=== PATIENT | female | born 1985 | race Caucasian/White ===

== ENCOUNTER 2022-12-29 18:25 | Outpatient (CLI) | payer OTHER, SELFPAY ==
[2022-12-29 18:43] VITALS: BP 112/74; PULSE 83; TEMP 36.8
[2022-12-29 18:48] VITALS: BMI 31.1
[2022-12-29 19:19] LABS: Color, Urine Yellow (Yellow); Glucose, Dipstick Normal (Normal); Ketone-Dipstick Negative (Negative); Leukocyte Esterase-Dipstick 25 /ul (Negative); Nitrite-Dipstick Negative (Negative); Occult Blood-Urine Negative /ul (Negative); Protein-Dipstick Negative (Negative); Specific Gravity, Urine 1.005 (1.002-1.030); Urine Bilirubin Dipstick Negative (Negative); Urine Clarity Clear (Clear); Urine Urobilinogen Normal (Normal)
--- NOTE | 2022-12-31 08:44 | OB.TRI.NOTE ---
HPI - General General Date of Admission: 12/29/22 Date of Service: 12/29/22 Chief Complaint: contractions HPI Narrative KELLY SOLIZ, is a 37 F who presents w/ cramping Maternal Data Information Final JOSELYN: 03/[birth year]/23 Gestational age: 27 PFSH PFSH Home Medications 12/29/22 [History Last Taken Unknown] Allergy/AdvReac Type Severity Reaction Status Date / Time No Known Allergies Allergy Verified 12/29/22 18:48 Social History Smoking Status: Never smoker NST FHR Rate Baby A Baseline: normal Variability:: Minimal and Moderate Accelerations:: 10 x 10 Decelerations:: None NST Reactive:: Appropriate for gestational age FHR Category:: Category I Uterine Activity:: irritability, no regular ctxds Assessment & Plan (1) 27 weeks gestation of : PLAN: High risk multigravida with advanced maternal age and threatened labor at 27 weeks gestation. No evidence of active labor. Some [place] contractions. Patient was discharged home with labor precautions and to return as needed or follow-up her next office appointment.
== END 2022-12-29 19:45 | disposition home or self-care (01) ==
LOC: WPOUT 18:34 → WP 18:35
PROVIDERS: Visit Provider Obstetrics & Gynecology
DX: O09.522 Supervision of elderly multigravida, second trimester (principal); Z3A.27 27 weeks gestation of pregnancy; O26.892 Other specified pregnancy related conditions, second trimester; R10.9 Unspecified abdominal pain
CPT/HCPCS: 59025; 59050; 81002; 87086; 87088

== ENCOUNTER 2023-03-14 17:45 | Outpatient (CLI) | payer OTHER, SELFPAY ==
[2023-03-14 18:01] VITALS: BP 113/79; PULSE 83
[2023-03-14 18:02] VITALS: PULSE 84; TEMP 37.2; O2SAT 98
[2023-03-14 18:08] VITALS: BMI 32.0
[2023-03-14 18:12] VITALS: BP 114/79; PULSE 83
[2023-03-14 18:22] VITALS: BP 110/66; PULSE 96
[2023-03-14 18:32] VITALS: BP 115/82; PULSE 99
--- NOTE | 2023-03-18 12:16 | OB.TRI.NOTE ---
HPI - General General Date of Admission: 03/14/23 Date of Service: 03/14/23 Chief Complaint: visual changes HPI Narrative KELLY SOLIZ, is a 37 F who presents c/o visual changes and concerned about preclampsia Maternal Data Information Final JOSELYN: 03/26/23 Gestational age: 38 2/7 [facility] Medical History (Updated 03/18/23 @ 12:[address] Goldie Vega MD) Advanced maternal age (AMA) in In vitro fertilization Home Medications 1 tab PO.IVFORM DAILY 12/29/22 [History Last Taken Unknown] Allergy/AdvReac Type Severity Reaction Status Date / Time No Known Allergies Allergy Verified 12/29/22 18:48 Social History Smoking Status: Never smoker NST FHR Rate Baby A Baseline: 130 Variability:: Moderate Accelerations:: 15 x 15 Decelerations:: None NST Reactive:: Yes FHR Category:: Category I Uterine Activity:: irregular ctxs Assessment & Plan (1) 38 weeks gestation of : PLAN: 38-week high risk multigravida with advanced maternal age and conceived by in vitro fertilization presents for visual changes. No evidence of preeclampsia. NST reactive. Discharged home with routine follow-up or return as needed. Patient was comfortable with plan
== END 2023-03-14 18:55 | disposition home or self-care (01) ==
LOC: WPOUT 17:53 → WP 17:54
PROVIDERS: Referring Provider Advanced Practice Midwife; Visit Provider Advanced Practice Midwife
DX: O99.891 Other specified diseases and conditions complicating pregnancy (principal); O09.523 Supervision of elderly multigravida, third trimester; Z3A.38 38 weeks gestation of pregnancy; O09.813 Supervision of pregnancy resulting from assisted reproductive technology, third trimester; H53.9 Unspecified visual disturbance
CPT/HCPCS: 59025; 59050

== ENCOUNTER 2023-03-19 07:20 | Inpatient (IN) | payer OTHER, SELFPAY ==
[2023-03-19] VITALS (52 sets, daily range): BP systolic 101–128; BP diastolic 59–91; PULSE 74–122; TEMP 36.1–36.8; O2SAT 92–100; BMI 31.9
[2023-03-19] MEDS: Lactated Ringers 1,000 ML 50 ML IV (07:55)
[2023-03-19] MEDS: 0.9% Normal Saline Single 100 ML IV.SOLN. INTRA-UTER (08:14)
[2023-03-19] MEDS: Oxytocin 15 Units/NS 250ml 15 UNITS/250 ML IV.SOLN 2 UNITS IV (08:20)
[2023-03-19 08:30] LABS: Absolute Lymphocyte Count 2.67 X10^3/uL (0.83-4.51); Absolute Neutrophil Count 5.5 X10^3/uL (2.0-7.7); Basophil# 0.04 X10^3/uL; Basophil% 0.4 % (0-1); Eosinophil# 0.22 X10^3/uL; Eosinophils% 2.4 % (0-5); Hematocrit 36.3 % (37-47); Hemoglobin 12.2 g/dL (12.0-15.0); Lymphocyte # 2.67 X10^3/ul (0.83-4.51); Lymphocyte % 28.6 % (19-41); Mean Corp Hgb Conc 33.6 g/dL (32-36); Mean Corpuscular Hgb 31.4 pg (27.0-32.0); Mean Corpuscular Volume 93.3 fL (81-99); Mean Platelet Vol. 9.1 fl (6.2-12.0); Monocyte# 0.81 X10^3/uL; Monocyte% 8.7 % (0-10); NRBC Flagged by Analyzer 0 % (0-5); Neutrophil # 5.53 X10^3/uL (2.7-7.7); Neutrophil % 59.2 % (47-70); Platelet Count 289 K/mm3 (150-450); RBC Distribution Width CV 13.9 % (11.6-14.6); RBC Distribution Width SD 47.1 fl (35.1-43.9); Red Blood Count 3.89 M/mm3 (4.2-5.4); White Blood Count 9.3 K/mm3 (4.4-11.0)
--- NOTE | 2023-03-19 09:31 | HP.PCM.OB_ITS ---
HPI - General General Date of Admission: 03/19/23 HPI Narrative KELLY SOLIZ, is a 37 F who presents at 39 weeks for induction of labor due to AMA and IVF. Maternal Data Information Final JOSELYN: 03/26/23 Gestational age: 39 weeks [facility] Medical History (Updated 03/19/23 @ 09:39 by Jeannette Mesa CNM) Advanced maternal age (AMA) in In vitro fertilization Home Medications 1 tab PO.IVFORM DAILY 12/29/22 [History Last Taken Unknown] Allergy/AdvReac Type Severity Reaction Status Date / Time No Known Allergies Allergy Verified 12/29/22 18:48 Surgical History History of surgery Social History Smoking Status: Never smoker History Elective abortions Hx Para 1 Spontaneous abortions Hx # Term Pregnancies Ectopic pregnancies Hx # Pregnancies Multiple births # of living children NST FHR Rate Baby A Baseline: 135 Variability:: Moderate Accelerations:: 15 x 15 Decelerations:: None FHR Category:: Category I Uterine Activity:: Irregular, mild ROS Constitutional Constitutional: Reports systems reviewed and no addt'l complaints, except as documented; Denies headache(s) Eyes Eyes: Denies acute decrease in peripheral vision, blurry vision or change in vision ENT HEENT: Reports systems reviewed and no addt'l complaints, except as documented Cardiovascular Cardiovascular: Denies chest pain or dizziness Respiratory/Chest Respiratory/Chest: Denies cough, dyspnea, dyspnea on exertion, shortness of breath at rest or shortness of breath with exertion Gastrointestinal Gastrointestinal: Denies abdominal pain, diarrhea, nausea or vomiting Genitourinary Genitourinary: Denies abdominal discomfort Musculoskeletal Musculoskeletal: Denies limited range of motion Integumentary Integumentary: Reports systems reviewed and no addt'l complaints, except as documented Neurologic Neurologic: Reports systems reviewed and no addt'l complaints, except as documented Psychiatric Psychiatric: Reports systems reviewed and no addt'l complaints, except as documented Endocrine Endocrinology: Reports systems reviewed and no addt'l complaints, except as documented Hematologic/Lymphatic Hematologic/Lymphatic: Reports systems reviewed and no addt'l complaints, except as documented Allergic/Immunologic Allergic/Immunologic: Reports systems reviewed and no addt'l complaints, except as documented Vital Signs Vital Signs Vital Signs: 03/19/23 07:43 03/19/23 07:43 Pulse Rate 100 Blood Pressure 114/84 H BP Systolic 114 BP Diastolic 84 Weight Weight: 186 lb Body Mass Index (BMI) 31.9 Physical Exam Const alert and oriented x3 General Appearance: cooperative Orientation / Consciousness: awake, oriented to person, oriented to place and oriented to time Exam Limitations: no limitations HEENT normocephalic Head and Scalp: normal to inspection, normocephalic and atraumatic Face and Sinus: normal facial exam Eyes General Eye: normal appearance of both eyes Neck full ROM Chest Chest: symmetrical chest wall rise Resp normal respiratory effort and normal air movement Auscultation: clear to auscultation bilaterally Cardio regular rate, regular rhythm, S1 normal heart sound, S2 normal heart sound, no murmurs, no rub, no gallops and no clicks GI normal to inspection, nondistended, normoactive bowel sounds and non-tender appearance of the vagina normal Bladder / Kidney Exam: no CVA tenderness Manual OB Exam: estimated gestational size appropriate, presentation cephalic, dilated 1cm, effaced 50%, station -3 and other Insertion of #20 molina balloon catheter through cervix with stylus, 30ml NS instilled into balloon. Patient tolerated well. Amniotic Fluid: no amniotic fluid noted Back/Spine normal ROM Extremity normal to inspection and full ROM Skin no rashes or lesions noted Neuro oriented x3, CN's II-XII intact bilaterally and moves all extremities Sensorium / Orientation: awake, alert and oriented to person Motor Exam: clonus absent Deep Tendon Reflexes: Rt Patellar (L4): 2+ and Lt Patellar (L4): 2+ Labs Labs Labs: Blood Type A NEGATIVE Antibody Screen NEGATIVE Hct 36.3 % (37-47) L Hgb 12.2 g/dL (12.0-15.0) Syphilis Total Ab Pending HIV negative HBsAG negative HepC negative RPR negative GBS negative A negative Rubella immune GC/CT negative Assessment & Plan (1) 39 weeks gestation of : (2) History of delivery: (3) resulting from in-vitro fertilization: (4) PCOS (polycystic ovarian syndrome): (5) History of miscarriage: (6) Rh negative state in antepartum period: (7) Encounter for induction of labor: PLAN: Plan 1) Admit to labor and delivery for induction of labor due to AMA and IVF 2) Routine labs 3) Continuous EFM 4) Molina balloon catheter for cervical ripening with pitocin 5) Epidural for pain management upon request 6) GBS negative 7) collaborative physician and notified of patient status.
[2023-03-19 09:48] LABS: Syphilis Antibodies Non-reactive
[2023-03-19] MEDS: Acetaminophen 500 MG Tablet PO ×2 (10:35→22:40)
[2023-03-19] MEDS: LACTATED RINGERS 500 ML 999 ML IV (14:51)
[2023-03-19] MEDS: fentaNYL-bupivacaine (epidural) 100 ML BAG EPIDURAL ×2 (15:32→21:09)
[2023-03-19] MEDS: Lactated Ringers 1,000 ML 200 ML IV ×2 (18:41→23:35)
[2023-03-19] MEDS: 0.9% Saline Lock 10 ML Syringe IV (22:23)
[2023-03-19] MEDS: Amnioinfusion- 0.9% NS 1,000 ML IV.SOLN. 1000 ML INTRA-UTER (23:58)
[2023-03-20] VITALS (50 sets, daily range): BP systolic 90–163; BP diastolic 54–94; PULSE 82–139; RESP 14–16; TEMP 36.2–37.2; O2SAT 90–100
[2023-03-20] MEDS: Oxytocin 15 Units/NS 250ml 15 UNITS/250 ML IV.SOLN 10 UNITS IV (01:31)
[2023-03-20] MEDS: Ondansetron 4 MG/2 ML Vial IV (02:03)
[2023-03-20] MEDS: Acetaminophen 500 MG Tablet PO (03:25)
--- NOTE | 2023-03-20 04:53 | EX.PCM.OBRPT ---
Maternal Data Information Final JOSELYN: 03/26/23 Gestational age: 39 1/7 Vaginal Delivery Maternal Presentation Maternal Presentation: Medically Indicated Induction (advanced maternal age) Type of Induction: Pitocin, Velásquez Bulb and Amniotomy Operative Information Date of Procedure: 03/20/23 Pre-Operative Diagnosis: maternal exhaustion, labor Post-Operative Diagnosis: same Surgery / Procedure Performed: Vacuum Assisted Vaginal Delivery (outlet) Type of Anesthesia: Epidural Drain: Velásquez to straight drain Estimated Blood Loss: 500 Time of Delivery: 04:35 Findings Description of Procedure: I arrived assessed the patient. She was pushing with moderate effort but cannot hold prolonged pushes because of her discomfort and exhaustion. She was frustrated. Patient pushed for half an hour without significant change. She had been labia approximately 2 cm many years with pushing for that half hour. Position was AVTAR. skull was on the pelvic floor. Station was +5. Epidural was adequate but she had significant back pain. Estimated weight was less than 4500 g and pelvis was clinically adequate to expect vaginal delivery. Velásquez catheter was in place. I discussed with the patient and her partner risk benefits and alternatives to trial of outlet assisted vacuum delivery and they desired to proceed. The vacuum was placed on the flexion point and I pulled with 1 contraction at 550 mmHg. I pulled to and there was a pop-off. Patient then delivered with maternal pushing efforts only on the next contraction. A vigorous male infant was delivered AVTAR over an intact perineum.. A loose nuchal cord ?1 was easily reduced. The remainder the was delivered with maternal pushing and gentle traction only in less than 15 seconds. The Pitocin infusion was initiated for active management of the third stage. The cord was clamped and cut pretty quickly because the infant had good tone and heart rate but immediately did have vigorous respiratory effort. The infant was attended to by the waiting nursing staff. The placenta was delivered spontaneously and intact. The cervix and vagina were intact. There is a first-degree vaginal laceration at approximately 12:00 that was repaired with 3-0 Vicryl Rapide suture. It was hemostatic. It was repaired because it was actively bleeding after delivery. Sponge and needle counts were correct. A vaginal sweep was completed by me. Presentation: AVTAR Amniotic Membrane Rupture Type: Artificial Amniotic Fluid Description: Clear Placental Delivery Description: Spontaneous Placenta Disposition: [facility] Specimen(s) Removed: cord blood Cord Vessel Description: 3 Vessels Cord Entanglement: Around neck x 1, loose Nuchal Cord Compression: Without compression Cord Gases: ABG and VBG A Gender: Male ([place]) (1 minute): 9 (5 minute): 9 Delayed Cord Clamping: No Post Vaginal Delivery Medications Given After Delivery: IV Pitocin and IM Pitocin Episiotomy Description: None Laceration: 1st degree Complication Complications: None
[2023-03-20] MEDS: Oxytocin 15 Units/NS 250ml 15 UNITS/250 ML IV.SOLN 83 UNITS IV (05:08)
[2023-03-20] MEDS: 0.9% Saline Lock 10 ML Syringe IV (05:08)
[2023-03-20] MEDS: Ibuprofen 600 MG Tablet PO ×3 (06:14→20:52)
[2023-03-20] MEDS: Acetaminophen 500 MG Tablet 1000 MG PO (10:57)
[2023-03-20] MEDS: Senna/Docusate Sodium 1 Tablet PO (20:52)
[2023-03-21 00:25] VITALS: BP 106/70; PULSE 88; RESP 16; TEMP 36.6
[2023-03-21 05:15] VITALS: BP 112/71; PULSE 91; RESP 16; TEMP 36.6
[2023-03-21] MEDS: Ibuprofen 600 MG Tablet PO ×2 (05:27→12:21)
[2023-03-21 05:28] LABS: Hematocrit 27.2 % (37-47); Hemoglobin 9.3 g/dL (12.0-15.0); Mean Corp Hgb Conc 34.2 g/dL (32-36); Mean Corpuscular Volume 93.5 fL (81-99); Mean Platelet Vol. 8.9 fl (6.2-12.0); Platelet Count 237 K/mm3 (150-450); RBC Distribution Width CV 14.2 % (11.6-14.6); RBC Distribution Width SD 47.3 fl (35.1-43.9); Red Blood Count 2.91 M/mm3 (4.2-5.4)
--- NOTE | 2023-03-21 06:40 | PN.OBGYN_ITS ---
Subjective Subjective Doing well per patient and nursing staff. Ambulating and taking PO without difficulty. Voiding and passing flatus. Pain controlled. , services for assistance. Denies headache, visual changes, chest pain, shortness of breath, leg pain or increased bleeding. Lochia normal. Objective Data Objective Data Vital Signs: Vital Signs Temp Pulse Resp BP Pulse Ox O2 Del Method 97.9 F 91 16 112/71 100 Room Air 03/21/23 05:15 03/21/23 05:15 03/21/23 05:15 03/21/23 05:15 03/20/23 12:00 03/21/23 05:15 Oxygen Delivery Method Room Air Weight: 186 lb Body Mass Index (BMI) 31.9 Intake & Output: Intake and Output for Last 24 Hours 03/19/23 03/20/23 03/21/23 23:59 23:59 23:59 Intake Total 2692.18 / 2692.18 1464.9 / 1464.9 Output Total 1600 / 1600 1800 / 1800 Balance 1092.18 / 1092.18 -335.1 / -335.1 Lab / Micro Data 03/21/23 05:20 Labs: Laboratory Results - last 24 hr 03/20/23 07:00: Screen NEGATIVE, Baby's Blood Type O POSITIVE, Baby's REJI NEGATIVE 03/21/23 05:20: WBC 22.0 H, RBC 2.91 L, Hgb 9.3 L, Hct 27.2 L, MCV 93.5, MCH 32.0, MCHC 34.2, RDW Std Deviation 47.3 H, RDW Coeff of Carlos 14.2, Plt Count 237, MPV 8.9 ROS Constitutional Constitutional: Reports systems reviewed and no addt'l complaints, except as documented; Denies headache(s) Eyes Eyes: Denies acute decrease in peripheral vision, blurry vision or change in vision ENT HEENT: Reports systems reviewed and no addt'l complaints, except as documented Cardiovascular Cardiovascular: Denies chest pain or dizziness Respiratory/Chest Respiratory/Chest: Denies cough, dyspnea, dyspnea on exertion, shortness of breath at rest or shortness of breath with exertion Gastrointestinal Gastrointestinal: Denies abdominal pain, diarrhea, nausea or vomiting Genitourinary Genitourinary: Denies abdominal discomfort Musculoskeletal Musculoskeletal: Denies limited range of motion Integumentary Integumentary: Reports systems reviewed and no addt'l complaints, except as documented Neurologic Neurologic: Reports systems reviewed and no addt'l complaints, except as documented Psychiatric Psychiatric: Reports systems reviewed and no addt'l complaints, except as do cumented Endocrine Endocrinology: Reports systems reviewed and no addt'l complaints, except as documented Hematologic/Lymphatic Hematologic/Lymphatic: Reports systems reviewed and no addt'l complaints, except as documented Allergic/Immunologic Allergic/Immunologic: Reports systems reviewed and no addt'l complaints, except as documented Physical Exam Const alert and oriented x3 General Appearance: cooperative Orientation / Consciousness: awake, oriented to person, oriented to place and oriented to time Exam Limitations: no limitations HEENT normocephalic Head and Scalp: normal to inspection, normocephalic and atraumatic Face and Sinus: normal facial exam Eyes General Eye: normal appearance of both eyes Neck full ROM Chest Chest: symmetrical chest wall rise Resp normal respiratory effort and normal air movement Auscultation: clear to auscultation bilaterally Cardio regular rate, regular rhythm, S1 normal heart sound, S2 normal heart sound, no murmurs, no rub, no gallops and no clicks GI normal to inspection, nondistended, normoactive bowel sounds and non-tender appearance of the vagina normal Bladder / Kidney Exam: no CVA tenderness Back/Spine normal ROM Extremity normal to inspection and full ROM Skin no rashes or lesions noted Neuro oriented x3, CN's II-XII intact bilaterally and moves all extremities Sensorium / Orientation: awake, alert and oriented to person Motor Exam: clonus absent Deep Tendon Reflexes: Rt Patellar (L4): 2+ and Lt Patellar (L4): 2+ Assessment & Plan (1) Vacuum extractor delivery, delivered: (2) Lactating mother: PLAN: Plan 1) PPD#1 VAVD 2) Vitals stable 3) I&O 4) Pain management 5) D/C home 6) Follow up 2 weeks and 6 week PP
--- NOTE | 2023-03-21 07:30 | PCM.DC.SUM ---
Providers Date of Admission: 03/19/23 Primary Care Physician: Dr. Andrea Claudio DO Reason For Visit: VAG DEL Diagnosis Discharge Diagnosis (1) Vacuum extractor delivery, delivered: Status: Acute Code(s): O75.9 - Complication of labor and delivery, unspecified (2) Lactating mother: Status: Acute Code(s): Z39.1 - Encounter for care and examination of lactating mother Plan 1) PPD#1 VAVD 2) Vitals stable 3) I&O 4) Pain management 5) D/C home 6) Follow up 2 weeks and 6 week PP Medications at Discharge Home Medications 1 tab PO.IVFORM DAILY 12/29/22 acetaminophen 500 mg tablet 1,000 mg (2 x 500 mg) PO Q6H PRN PRN Pain 1-10 Or Fever #0 tabs 03/21/23 ibuprofen 600 mg tablet 600 mg PO Q6H PRN PRN Pain Score 1-3 #0 tabs 03/21/23 Weight / BMI Weight Weight: 186 lb Body Mass Index (BMI) 31.9 ABG / Lab / Microbiology Data 03/21/23 05:20 Laboratory: Laboratory Results - last 24 hr 03/20/23 07:00: Screen NEGATIVE, Baby's Blood Type O POSITIVE, Baby's REJI NEGATIVE 03/21/23 05:20: WBC 22.0 H, RBC 2.91 L, Hgb 9.3 L, Hct 27.2 L, MCV 93.5, MCH 32.0, MCHC 34.2, RDW Std Deviation 47.3 H, RDW Coeff of Carlos 14.2, Plt Count 237, MPV 8.9 Meaningful Use Info Meaningful Use Diagnoses (Choose all that apply): None applicable Discharge Plan Admission Admit Date/Time: 03/19/23 07:20 Primary Reason for Your Visit: Vaginal Delivery Attending Provider: Goldie Vega Primary Care Provider: Andrea Claudio Discharge Orders/Prescriptions Prescriptions: New acetaminophen 500 mg Tablet 1,000 mg PO Q6H PRN PRN (Reason: Pain 1-10 Or Fever) Qty: 0 0RF ibuprofen 600 mg Tablet 600 mg PO Q6H PRN PRN (Reason: Pain Score 1-3) Qty: 0 0RF Continued 1 tab PO.IVFORM DAILY Referrals / Follow Up: Shanon,Andrea, DO [Primary Care Provider] - Disposition Disposition (needs filled in before D/C Order can be placed): Home, Self Care
[2023-03-21 09:18] VITALS: BP 95/61; PULSE 81; RESP 16; TEMP 36.2; O2SAT 98
[2023-03-21 14:03] VITALS: BP 94/55; PULSE 81; RESP 16; TEMP 36.6
== END 2023-03-21 16:45 | disposition home or self-care (01) | DRG 807 ==
PROVIDERS: Advanced Practice Midwife; Admitting Provider Obstetrics & Gynecology; PCP Family Medicine; Visit Provider Obstetrics & Gynecology
DX: O75.81 Maternal exhaustion complicating labor and delivery (principal); Z37.0 Single live birth; E28.2 Polycystic ovarian syndrome; O69.81X0 Labor and delivery complicated by cord around neck, without compression, not applicable or unspecified; O70.0 First degree perineal laceration during delivery; O99.284 Endocrine, nutritional and metabolic diseases complicating childbirth; Z87.51 Personal history of pre-term labor; Z67.91 Unspecified blood type, Rh negative; Z3A.39 39 weeks gestation of pregnancy
CPT/HCPCS: 59025; 59050; 85025; 85027; 85461; 86780; 86850; 86900; 86901; 99221; J7030; J7120; A4216; G0378; J2405; J2790